=== PATIENT | male | born 1960 | race Caucasian/White ===

== ENCOUNTER 2018-03-13 15:34 | Emergency (ER) | payer OTHER ==
[~2018-03-13] VITALS: Ht 175.3 cm; Wt 98.9 kg
[2018-03-13] MEDS ORDERED: SODIUM CHLORIDE 0.9% 1000ML 1,000 ML IV SCH (16:45)
[2018-03-13 18:45] VITALS: BP 160/70
== END 2018-03-13 18:46 | disposition home or self-care (01) ==
LOC: FSED 15:34
DX: G44.89 Other headache syndrome (principal); I10 Essential (primary) hypertension; K52.9 Noninfective gastroenteritis and colitis, unspecified
CPT/HCPCS: 80053; 81003; 84484; 85025; 93005; 99284; J7030

== ENCOUNTER 2018-10-22 16:47 | Emergency (ER) | payer OTHER ==
[~2018-10-22] VITALS: Ht 175.3 cm; Wt 100.9 kg
[2018-10-22] MEDS ORDERED: BENAZEPRIL HCL10 MG PO (17:16)
[2018-10-22] MEDS ORDERED: FISH OIL 1,0001 EAC2 (17:16)
[2018-10-22] MEDS ORDERED: ASPIR 8181 MG (17:16)
[2018-10-22] MEDS ORDERED: GLUCOSAMINE1000 MG (17:16)
[2018-10-22] MEDS ORDERED: MULTI-VITAMIN1 EACH (17:16)
[2018-10-22] MEDS ORDERED: CARVEDILOL12.5 MG PO (17:16)
[2018-10-22] MEDS ORDERED: AMLODIPINE BESYLATE 10 MG TAB ONE (17:20)
--- NOTE | 2018-10-22 18:02 | Diagnostic Imaging Report ---
EXAMINATION: Chest PA and lateral views INDICATION: Pain. Elevator COMPARISON: None FINDINGS: TUBES and LINES: None. LUNGS: Lungs are well inflated. Left basilar linear scarring. There is no evidence of pneumonia or pulmonary edema. PLEURA: No pleural effusion or pneumothorax. HEART AND MEDIASTINUM: The cardiomediastinal silhouette is unremarkable. BONES AND SOFT TISSUES: No acute osseous lesion. Soft tissues are unremarkable. UPPER ABDOMEN: No free air under the diaphragm. IMPRESSION: No acute thoracic abnormality. Signed by: Dr. Anthony Christine M.D. on 10/22/2018 5:59 PM
[2018-10-22 18:32] VITALS: BP 157/93
[2018-10-23] MEDS ORDERED: AMLODIPINE BESYLATE 10 MG TAB PO SCH (09:00)
== END 2018-10-22 18:36 | disposition home or self-care (01) ==
LOC: FSED 16:47
DX: R00.2 Palpitations (principal); I10 Essential (primary) hypertension
CPT/HCPCS: 71046; 80053; 82553; 84484; 85025; 93005; 99284